=== PATIENT | male | born 1975 | race Caucasian/White ===

== ENCOUNTER 2021-08-20 16:19 | Emergency (ER) | payer OTHER ==
[~2021-08-20] VITALS: Ht 162.6 cm; Wt 83.9 kg
[2021-08-20] MEDS ORDERED: CYCL10 PO (17:47)
== END 2021-08-20 18:23 | disposition home or self-care (01) ==
LOC: ER 16:19
DX: S43.52XA Sprain of left acromioclavicular joint, initial encounter (principal); M54.50 Low back pain, unspecified; F17.210 Nicotine dependence, cigarettes, uncomplicated; V29.9XXA Motorcycle rider (driver) (passenger) injured in unspecified traffic accident, initial encounter
CPT/HCPCS: 29125; 71045; 72100; 72125; 73030; 73090; 94760; 96374; 96375; 99285-25; J2270; J2405